=== PATIENT | male | born 1970 | race Caucasian/White ===

== ENCOUNTER 2018-11-21 13:44 | Emergency (ER) | payer OTHER ==
[~2018-11-21] VITALS: Ht 172.7 cm; Wt 74.8 kg
[~2018-11-21 13:44] MED LIST: CYCL10 PO; DIAZ5 PO; HYDACE5 PO; PRED20 PO; RXCYCL10 PO; RXHYDACE PO; RXTRAM50 PO; TOBR.3OPO OP; TRAM50 PO
[2018-11-21] MEDS ORDERED: Robaxin500 MG PO (14:20)
[2018-11-21] MEDS ORDERED: PRED10 PO (14:20)
[2018-11-21] MEDS ORDERED: Ultram50 MG PO (14:20)
== END 2018-11-21 14:37 | disposition home or self-care (01) ==
LOC: ER 13:44
DX: M54.41 Lumbago with sciatica, right side (principal); F17.210 Nicotine dependence, cigarettes, uncomplicated
CPT/HCPCS: 96372; 99283-25; J1885

== ENCOUNTER 2024-05-29 21:59 | Emergency (ER) | payer OTHER ==
[~2024-05-29] VITALS: Ht 172.7 cm; Wt 74.8 kg
[~2024-05-29 21:59] MED LIST changes: +PRED10 PO; +Robaxin500 MG PO; +Ultram50 MG PO
[2024-05-30] MEDS ORDERED: Ibuprofen 600 MG Tab PO ONE (00:45)
[2024-05-30 00:50] VITALS: BP 160/91
== END 2024-05-30 01:00 | disposition home or self-care (01) ==
LOC: ER 21:59
DX: S86.912A Strain of unspecified muscle(s) and tendon(s) at lower leg level, left leg, initial encounter (principal); V89.2XXA Person injured in unspecified motor-vehicle accident, traffic, initial encounter; Z79.899 Other long term (current) drug therapy; F17.210 Nicotine dependence, cigarettes, uncomplicated
CPT/HCPCS: 73562-LT; 99283-25; A9270